=== PATIENT | male | born 1950 | race Caucasian/White ===

== ENCOUNTER → 2017-05-12 | Outpatient (CLI) | payer OTHER, BC ==
[~2017-05-12] MED LIST: AMT50 PO; CALC500C50; FLUD0.1T10 PO; MELO15TA4 PO; MULT-506 PO; NCYSR50 PO; NSNN50; PRLSR20 PO; TAPE50TA5 PO
[2017-05-12 13:02] LABS: ESTIMATED AVERAGE GLUCOSE 123 mg/dl; HA1C FLAG Normal (Normal)
[2017-05-12 13:20] LABS: BLOOD UREA NITROGEN 23 mg/dl (7-18); GLUCOSE 94 mg/dl (70-99)
[2017-05-12 13:21] LABS: ALT/SGPT 27 U/L (12-78); BUN/CREATININE RATIO 21.2 (10-20); CALCIUM 9.2 mg/dl (8.5-10.1); CARBON DIOXIDE 30 mmol/L (21-32); CHLORIDE 100 mmol/L (98-107); CHOLESTEROL 126 mg/dl (0-200); POTASSIUM 3.9 mmol/L (3.5-5.1); SODIUM 137 mmol/L (136-145)
[2017-05-12 13:24] LABS: ALB/GLOB RATIO 1.1 (0.9-2); ALKALINE PHOSPHATASE 78 U/L (45-117); AST/SGOT 18 U/L (15-37); HDL CHOLESTEROL 42 mg/dl; LDL CHOLESTEROL CALCULATED 66 mg/dl; TRIGLYCERIDES 91 mg/dl (0-150); VERY LOW DENSITY LIPOPROT CALC 18 mg/dl
== END | disposition home or self-care (01) ==
LOC: C.LABBFT 10:32
PROVIDERS: ATTEND Physician Assistant Medical
DX: R73.03 Prediabetes (principal); I95.9 Hypotension, unspecified; E78.5 Hyperlipidemia, unspecified; Z11.59 Encounter for screening for other viral diseases